=== PATIENT | female | born 1995 | race Two or more races ===

== ENCOUNTER 2023-02-13 09:17 | Emergency (ER) | payer OTHER ==
[~2023-02-13] VITALS: Ht 149.9 cm; Wt 76.7 kg
[2023-02-13] MEDS ORDERED: LASIX20 MG PO (09:38)
[2023-02-13] MEDS ORDERED: ALDACTONE25 MG PO (09:39)
[2023-02-13] MEDS ORDERED: TOPROL XL25 M1 (09:40)
[2023-02-13] MEDS ORDERED: ENTRESTO 24 MG1 EACH (09:41)
[2023-02-13] MEDS ORDERED: JARDIANCE10 MG (09:41)
[2023-02-13 11:17] LABS: HEMATOCRIT 35.7 % (36.0-45.00); HEMOGLOBIN 12.1 g/dL (12.0-15.00); MEAN CORPUSCULAR HEMOGLOBIN 28.5 pg (27.00-32.0); PLATELET COUNT 319 K/uL (150-450); RED BLOOD COUNT 4.25 M/uL (4.00-6.00); RED CELL DISTRIBUTION WIDTH 15.8 % (11.5-14.5)
== END 2023-02-13 12:42 | disposition home or self-care (01) ==
LOC: ER 09:18
PROVIDERS: General Practice
DX: J06.9 Acute upper respiratory infection, unspecified (principal); Z20.822 Contact with and (suspected) exposure to COVID-19

== ENCOUNTER 2024-12-17 07:01 | Outpatient (CLI) | payer OTHER ==
[~2024-12-17 07:01] MED LIST: ALDACTONE25 MG PO; ENTRESTO 24 MG1 EACH; JARDIANCE10 MG; LASIX20 MG PO; TOPROL XL25 M1
[2024-12-18 05:09] LABS: HEPATITIS A ANTIBODY IGG Positive (Negative); HEPATITIS B SURFACE ANTIBODY Non Reactive (.); HEPATITIS C VIRUS ANTIBODY Non Reactive (Non Reactive)
== END 2024-12-17 07:02 | disposition home or self-care (01) ==
LOC: LAB 07:01
DX: A64 Unspecified sexually transmitted disease (principal); B19.9 Unspecified viral hepatitis without hepatic coma